=== PATIENT | female | born 1935 | race Caucasian/White ===

== ENCOUNTER → 2020-07-29 | Outpatient (CLI) | payer MEDICARE, BC ==
--- NOTE | 2020-07-29 23:42 | RAD ---
Metastatic survey HISTORY: Multiple myeloma AP lateral views were obtained of the C-spine as well as AP and lateral views of the humerus and femur and AP view of the chest abdomen and pelvis The heart is normal-sized the pulmonary vessels appear normal. There is reticular opacities of lungs which is likely chronic pulmonary fibrosis. 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 There is numerous small foci of lucencies throughout the osseous structures especially in the calvarium and mandible. There is prior left hip total arthroplasty. IMPRESSION: Numerous small round lucencies throughout the osseous structures consistent with multiple myeloma. Electronically signed by: Leonardo Swift III, MD (07/29/2020 11:39 PM) [facility]
[2020-07-30 14:11] LABS: KAPPA FREE 294.7 mg/L (3.3-19.4); KAPPA LAMBDA RATIO 26.55 (0.26-1.65); LAMBDA FREE 11.1 mg/L (5.7-26.3)
== END ==
LOC: DXRAD 11:29
PROVIDERS: ATTEND Internal Medicine Medical Oncology
DX: C90.00 Multiple myeloma not having achieved remission (principal); M40.294 Other kyphosis, thoracic region
CPT/HCPCS: 36415; 77075; 83520

== ENCOUNTER 2021-10-30 19:41 | Emergency (ER) | payer MEDICARE, BC ==
[~2021-10-30] VITALS: Ht 152.4 cm; Wt 42.5 kg
[2021-10-30] MEDS ORDERED: IV NORMAL SALINE 1,000ML 1,000 ML IV SCH (20:00)
--- NOTE | 2021-10-30 20:05 | PHYS DOC ---
Past History Alcohol Use: None (JENNIE LONG APRN) General Adult EDM: Chief Complaint: SHORTNESS OF BREATH HPI: HPI: Patient is an 86-year-old female who presents to the emergency department via EMS for shortness of breath. She does report lightheaded feeling. Patient was diagnosed with bone cancer 3 years ago and has intermittent episodes of shortness of breath for the last 3 years. Patient does not wear oxygen at home. Her oxygen saturation on room air is 95 to 96%. Patient currently receives chemotherapy for her bone cancer. She also has a history of atrial fibrillation, GERD. She does take Cardizem and Eliquis. Patient denies any chest pain, abdominal pain, cough, fever, nausea, vomiting. Patient is a current smoker. (JENNIE LONG APRN) Review of Systems: Review of Systems: Constitutional: negative unless reported in HPI Eyes: negative unless reported in HPI HENT: negative unless reported in HPI Respiratory: negative unless reported in HPI Cardiovascular: negative unless reported in HPI GI: negative unless reported in HPI : negative unless reported in HPI Musculoskeletal: negative unless reported in HPI Integument: negative unless reported in HPI Neurologic: negative unless reported in HPI Endocrine: negative unless reported in HPI Lymphatic: negative unless reported in HPI Psychiatric: negative unless reported in HPI (JENNIE LONG APRN) Current Medications: Current Meds: Current Medications Medications (Trade) Dose Ordered Sig/Zaynab Start Time Stop Time Status Last Admin Dose Admin Sodium Chloride 1,000 ml @ 1,000 mls/hr Q1H 10/30/21 20:00 10/30/21 20:59 UNV (JENNIE LONG APRN) Allergies: Allergies: Allergies Coded Allergies Type Severity Reaction Last Updated Verified No Known Drug Allergies 10/30/21 No (JENNIE LONG APRN) Physical Exam: PE: Constitutional: Well developed, well nourished, no acute distress, non-toxic appearance. [] HENT: Normocephalic, atraumatic, bilateral external ears normal, oropharynx moist, dry mucous membranes, nose normal. [] Eyes: PERRL, EOMI, conjunctiva normal, no discharge. [] Neck: Normal range of motion, no stridor Cardiovascular:Heart rate tachycardia rhythm, no murmur [] Lungs & Thorax: Diminished lung sounds Abdomen: Bowel sounds normal, soft, no tenderness, no masses, no pulsatile masses. [] Skin: Warm, dry, no erythema, no rash. [] Back: Normal range of motion Extremities: No tenderness, no cyanosis, no clubbing, ROM intact, no edema. [] Neurologic: Alert and oriented X 3, normal motor function, normal sensory function, no focal deficits noted. [] Psychologic: Affect normal, judgement normal, mood normal. [] (JENNIE LONG APRN) Current Patient Data: Labs: Laboratory Tests Test 10/30/21 20:20 10/30/21 20:25 10/30/21 20:37 White Blood Count 2.3 x10^3/uL Red Blood Count 1.97 x10^6/uL Hemoglobin 6.4 g/dL Hematocrit 20.0 % Mean Corpuscular Volume 102 fL Mean Corpuscular Hemoglobin 33 pg Mean Corpuscular Hemoglobin Concent 32 g/dL Red Cell Distribution Width 22.5 % Platelet Count 100 x10^3/uL Neutrophils (%) (Auto) 64 % Lymphocytes (%) (Auto) 20 % Monocytes (%) (Auto) 13 % Eosinophils (%) (Auto) 1 % Basophils (%) (Auto) 2 % Neutrophils # (Auto) 1.5 x10^3uL Lymphocytes # (Auto) 0.5 x10^3/uL Monocytes # (Auto) 0.3 x10^3/uL Eosinophils # (Auto) 0.0 x10^3/uL Basophils # (Auto) 0.0 x10^3/uL Platelet Estimate Pending Sodium Level 139 mmol/L Potassium Level 4.0 mmol/L Chloride Level 105 mmol/L Carbon Dioxide Level 25 mmol/L Anion Gap 9 Blood Urea Nitrogen 32 mg/dL Creatinine 1.1 mg/dL Estimated GFR (Cockcroft-Gault) 47.0 BUN/Creatinine Ratio 29 Glucose Level 101 mg/dL Calcium Level 9.0 mg/dL Total Bilirubin 0.3 mg/dL Aspartate Amino Transf (AST/SGOT) 10 U/L Alanine Aminotransferase (ALT/SGPT) 12 U/L Alkaline Phosphatase 70 U/L Troponin I High Sensitivity 42 ng/L Total Protein 6.6 g/dL Albumin 3.0 g/dL Albumin/Globulin Ratio 0.8 Urine Collection Type U cath Urine Color Yellow Urine Clarity Clear Urine pH 5.5 Urine Specific [place] 1.025 Urine Protein Neg Urine Glucose (UA) Neg mg/dL Urine Ketones (Stick) Neg mg/dL Urine Blood Neg Urine Nitrite Neg Urine Bilirubin Neg Urine Urobilinogen Dipstick 0.2 mg/dL Urine Leukocyte Esterase Neg Urine RBC Occ /HPF Urine WBC 0 /HPF Urine Squamous Epithelial Cells Occ /LPF Urine Bacteria 0 /HPF Influenza Type A (Rapid) Negative Influenza Type B (Rapid) Negative SARS-CoV-2 Antigen (Rapid) Negative Current Medications Medications (Trade) Dose Ordered Sig/Zaynab Route PRN Reason Start Time Stop Time Status Last Admin Dose Admin Sodium Chloride 1,000 ml @ 1,000 mls/hr Q1H IV 10/30/21 20:00 10/30/21 21:00 DC 10/30/21 20:38 Diltiazem HCl (Cardizem Iv Push) 10 mg 1X ONCE IVP 10/30/21 21:30 10/30/21 21:31 Vital Signs: Vital Signs Date Time Temp Pulse Resp B/P (MAP) Pulse Ox O2 Delivery O2 Flow Rate FiO2 10/30/21 19:41 132/56 (81) (JENNIE LONG APRN) EKG: EKG: EKG performed by ER staff at 2054 shows atrial fibrillation with a rate of 121, QTc of 506. No STEMI read by Dr. Moreno [] (JENNIE LONG APRN) Radiology/Procedures: Radiology/Procedures: []PROCEDURE: PORTABLE CHEST 1V EXAM: Chest, single view. HISTORY: Shortness of air. COMPARISON: None. FINDINGS: A frontal view of the chest is obtained. There is diffuse interstitial infiltrate with small pleural effusions and cardiomegaly. There are suspected partial left lower lobe consolidation. IMPRESSION: 1. Diffuse interstitial infiltrate with small pleural effusions and partial left lower lobe consolidation. 2. Cardiomegaly. Electronically signed by: Lainey Medrano MD (10/30/2021 8:16 PM) [facility] DICTATED AND SIGNED BY: LAINEY MEDRANO MD DATE: 10/30/212014 CC: EMERGENCY,DEPARTMENT; JENNIE LONG APRN; TEE AGUILAR MD ~MTH0 0 (JENNIE LONG APRN) Heart Score: C/O Chest Pain: No Risk Factors: Risk Factors: DM, Current or recent (<one month) smoker, HTN, HLP, family history of CAD, obesity. Risk Scores: Score 0 - 3: 2.5% MACE over next 6 weeks - Discharge Home Score 4 - 6: 20.3% MACE over next 6 weeks - Admit for Clinical Observation Score 7 - 10: 72.7% MACE over next 6 weeks - Early Invasive Strategies (JENNIE LONG APRN) Course & Med Decision Making: Course & Med Decision Making Pertinent Labs and Imaging studies reviewed. (See chart for details) [] Patient presents to the emergency department for intermittent shortness of breath for the last 3 years. Patient is tachycardic. Her oxygen saturation on room air is 95 to 96%. It does appear that patient has a history of atrial fibrillation and she is currently in A. fib. She does take Eliquis and Cardizem. Patient will be treated with a Cardizem bolus in the emergency department and IV fluids. Work-up in the ER consisted of blood work, EKG and chest x-ray. Patient has a unremarkable CMP and troponin. Urinalysis not show urinary tract infection. Patient's hemoglobin is 6.4 and hematocrit 20. Chest x-ray does show pneumonia and he will be treated with an antibiotic. Type and screen ordered as patient will require blood transfusion. I discussed these findings with Dr. Cherry the hospitalist at [facility]. He reported that since patient has atrial fibrillation with RVR and may require a Cardizem infusion, we do not have ICU capability at this hospital will need to be transferred to [facility]. I discussed these findings and patient's case with Dr. Mcghee at [facility] who agreed to accept the patient under his services for anemia, A. fib RVR and pneumonia. I discussed patient's findings with her as well as care plan and she is agreeable at this time.[id number] patient states that she is a full code. (JENNIE LONG APRN) Dragon Disclaimer: Dragon Disclaimer: This electronic medical record was generated, in whole or in part, using a voice recognition dictation system. (JENNIE LONG APRN) Dragon Disclaimer This chart was dictated in whole or in part using Voice Recognition software in a busy, high-work load, and often noisy Emergency Department environment. It may contain unintended and wholly unrecognized errors or omissions. (ABBI MORENO MD) Departure Departure: Impression: Primary Impression: Atrial fibrillation with RVR Additional Impressions: Pneumonia Qualified Codes: J18.9 - Pneumonia, unspecified organism Anemia Qualified Codes: D64.9 - Anemia, unspecified Disposition: 02 SHORT TERM HOSPITAL Condition: STABLE Referrals: TEE AGUILAR MD (PCP) [place] Disclaimer This chart was dictated in whole or in part using Voice Recognition software in a busy, high-work load, and often noisy Emergency Department environment. It may contain unintended and wholly unrecognized errors or omissions. (ABBI MORENO MD) Attending Signature Attending Signature I have participated in the care of this patient and I have reviewed and agree with all pertinent clinical information above including history, exam, and recommendations. (ABBI MORENO MD) Attending Signature Attending Signature I have participated in the care of this patient and I have reviewed and agree with all pertinent clinical information above including history, exam, and toyin mmendations. (ABBI MORENO MD) JENNIE LONG APRN Oct 30, 2021 20:04 ABBI MORENO MD Oct 30, 2021 22:23
--- NOTE | 2021-10-30 20:18 | RAD ---
EXAM: Chest, single view. HISTORY: Shortness of air. COMPARISON: None. FINDINGS: A frontal view of the chest is obtained. There is diffuse interstitial infiltrate with smal l pleural effusions and cardiomegaly. There are suspected partial left lower lobe consolidation. IMPRESSION: 1. Diffuse interstitial infiltrate with small pleural effusions and partial left lower lobe consolida tion. 2. Cardiomegaly. Electronically signed by: Lainey Molina MD (10/30/2021 8:16 PM) [facility]
[2021-10-30 20:54] LABS: BASO % 2 % (0-3); EOS % 1 % (0-3); LYMPH # 0.5 x10^3/uL (1.0-4.8); LYMPH % 20 % (24-48); MEAN CORPUSCULAR HEMOGLOBIN 33 pg (25-35); MEAN CORPUSCULAR HGB CONC 32 g/dL (31-37); MEAN CORPUSCULAR VOLUME 102 fL (79-100); MONO # 0.3 x10^3/uL (0.0-1.1); MONO % 13 % (0-9); NEUT # 1.5 x10^3uL (1.8-7.7); NEUT % 64 % (31-73); PLATELET COUNT 100 x10^3/uL (140-400); RED BLOOD COUNT 1.97 x10^6/uL (3.50-5.40); RED CELL DISTRIBUTION WIDTH 22.5 % (11.5-14.5); WHITE BLOOD COUNT 2.3 x10^3/uL (4.0-11.0)
[2021-10-30 21:05] LABS: CREATININE 1.1 mg/dL (0.6-1.0)
[2021-10-30 21:07] LABS: BACTERIA,URINE 0 /HPF (0-FEW); CLARITY,URINE CLEAR; COLOR,URINE YELLOW; GLUCOSE,URINE NEG (NEG); NITRITE,URINE NEG (NEG); RBC,URINE OCC /HPF (0-2); SQUAMOUS EPITHELIAL CELL,UR OCC /LPF; UROBILINOGEN,URINE 0.2 mg/dL (0.2 mg/dL); WBC,URINE 0 /HPF (0-4)
[2021-10-30 21:07] LABS: ALBUMIN/GLOBULIN RATIO 0.8 (1.0-1.7); TOTAL BILIRUBIN 0.3 mg/dL (0.2-1.0); TOTAL PROTEIN 6.6 g/dL (6.4-8.2)
[2021-10-30 21:18] LABS: INFLUENZA A PATIENT NEGATIVE (NEGATIVE); INFLUENZA B PATIENT NEGATIVE (NEGATIVE)
--- NOTE | 2021-10-30 21:23 | EKG ---
[address] [address] Test Date: 2021-10-30 Test Time: 20:55:00 Pat Name: AYSHA MAK Department: Room: Gender: F Stretch Box Tender: YENI : 1935 Requested By: JENNIE LONG Order Number: [id number] Reading MD: Mitch Rosenberg Measurements Intervals [place] Rate: 121 P: [place]: QRS: -3 QRSD: 94 T: 125 QT: 354 QTc: 506 Interpretive Statements ATRIAL FIBRILLATION WITH RVR LOW LIMB LEAD VOLTAGE T ABNORMALITY IN HIGH LATERAL LEADS INFERIOR LEADS ABNORMAL ECG RI6.01 No previous ECG available for comparison Electronically Signed On 10-31-2021 13:48:53 [employer] M[employer]INE OPERATOR by Mitch Rosenberg
[2021-10-30] MEDS ORDERED: AZITHROMYCIN 500 MG in IV NORMAL SALINE 250ML 250 ML IV ONE (21:30)
[2021-10-30] MEDS ORDERED: dilTIAZem 25 MG/5 ML VIAL IVP ONE (21:30)
[2021-10-30 21:32] LABS: % EOS 1 % (0-5); % LYMPHS 26 % (24-48); % MONOS 4 % (0-10); % SEGS 69 % (35-66)
[2021-10-30 21:33] LABS: PLT ESTIMATE DECREASED (ADEQUATE)
[2021-10-30 21:34] LABS: ANISOCYTOSIS MARKED; HYPOCHROMIA MOD; TARGET CELLS MOD
[2021-10-30] MEDS ORDERED: cefTRIAXone SODIUM 1 GM VIAL ONE (22:02)
[2021-10-30] MEDS ORDERED: IV NORMAL SALINE 50ML 50 ML ONE (22:02)
[2021-10-30] MEDS ORDERED: diphenhydrAMINE 50 MG/ML VIAL IVP ONE (22:30)
[2021-10-30] MEDS ORDERED: ACETAMINOPHEN 500 MG TABLET PO ONE (22:30)
[2021-10-30 22:46] LABS: HEMOGLOBIN 6.4 g/dL (12.0-15.5)
[2021-10-30] MEDS ORDERED: IV NORMAL SALINE 100ML 100 ML ONE (23:08)
[2021-10-30] MEDS ORDERED: dilTIAZem VIAL 125 MG in IV NORMAL SALINE 100ML 100 ML IV PRN (23:15)
[2021-10-30 23:18] VITALS: BP 162/93
== END 2021-10-30 23:35 | disposition short-term general hospital (02) ==
LOC: ER 19:41
DX: I48.20 Chronic atrial fibrillation, unspecified (principal); J18.9 Pneumonia, unspecified organism; D64.9 Anemia, unspecified; K21.9 Gastro-esophageal reflux disease without esophagitis; F17.200 Nicotine dependence, unspecified, uncomplicated; Z20.822 Contact with and (suspected) exposure to COVID-19
CPT/HCPCS: 36415; 71045; 80053; 81001; 84484; 85007; 85025; 86850; 86900; 86901; 86920; 87428; 93005; 96361; 96365; 96375; 99285; C9803; J0696; J1200; J3490; J7030; P9612; U0003